=== PATIENT | female | born 1980 | race Caucasian/White ===

== ENCOUNTER 2018-01-26 18:49 | Emergency (ER) | payer BC ==
[2018-01-26 19:01] VITALS: BP 119/83
--- NOTE | 2018-01-26 20:28 | UC ---
FLU HPI - HPI Summary HPI Summary: patient is a 37-year-old female presenting to the with a chief complaint of excessive fatigue. She states the past 2 weeks she has been wanting to sleep all the time. She also endorses dry mouth. Denies any fevers, sweats, chills, URI symptoms, urinary symptoms, abdominal pain or headaches. Denies any recent illness. Denies any sick contacts. She has never felt this way before. She has no known diagnoses other than depression for which she takes Zoloft. She is here requesting a Lyme test. Denies any rashes, specifically EM rash and denies any recent tick bites. - History of Current Complaint Chief Complaint: UCGeneralIllness Stated Complaint: FATIGUE, AND ACHES Time Seen by Provider: 01/26/18 19:52 Hx Obtained From: Patient Hx Last Menstrual Period: 3 wks ago ?: No Onset/Duration: Sudden Onset Severity Currently: Mild Severity Initially: Mild Pain Intensity: 3 Pain Scale Used: 0-10 Numeric Associated Signs & Symptoms: Negative: Fever, T Max, F/C, Cough, Sore Throat, Nasal Congestion, Headache, Vomiting, Diarrhea - Risk Factors Influenza Risk Factors: Negative - Allergy/Home Medications Allergies/Adverse Reactions: Allergies Allergy/AdvReac Type Severity Reaction Status Date / Time No Known Allergies Allergy Verified 01/26/18 19:01 Home Medications: Home Medications Propranolol TAB* [Inderal TAB*] 1 tab PO ONCE 01/26/18 [History Confirmed ] Sertraline* [Zoloft*] 1 tab PO DAILY 01/26/18 [History Confirmed 01/26/18] PMH/Surg Hx/FS Hx/Imm Hx Previously Healthy: Yes - Surgical History Surgical History: None - Social History Occupation: Employed Full-time Lives: With Family Alcohol Use: Occasionally Substance Use Type: None Smoking Status (MU): Current Some Day Smoker Review of Systems Constitutional: Fatigue Skin: Negative Respiratory: Negative Cardiovascular: Negative Gastrointestinal: Negative Motor: Negative Neurovascular: Negative Musculoskeletal: Negative Neurological: Negative Is Patient Immunocompromised?: No All Other Systems Reviewed And Are Negative: Yes Physical Exam Triage Information Reviewed: Yes Appearance: Well-Appearing, Well-Nourished Vital Signs: Initial Vital Signs Temp 98.3 F 01/26/18 18:57 Pulse 68 01/26/18 18:57 Resp 18 01/26/18 18:57 BP 119/83 01/26/18 18:57 Pulse Ox 100 01/26/18 18:57 Vital Signs Reviewed: Yes Eye Exam: Normal Eyes: Positive: Conjunctiva Clear Neck exam: Normal Neck: Positive: Supple Respiratory Exam: Normal Respiratory: Positive: Chest non-tender Cardiovascular Exam: Normal Cardiovascular: Positive: RRR Musculoskeletal Exam: Normal Musculoskeletal: Positive: Strength Intact Neurological Exam: Normal Neurological: Positive: Alert Skin Exam: Normal Flu Course/Dx - Course Course Of Treatment: The patient is evaluated for excessive fatigue. TMs without erythema. Lungs CTA. RRR. No abdominal pain. No urinary symptoms. Patient looks otherwise well. She complains of excessive fatigue. She is requesting a Lyme test. Due to excessive fatigue, will add a Monospot as well as baseline labs. We'll call with any positive results. She is made aware and is okay with this plan and discharged at this time. - Differential Dx/Diagnosis Provider Diagnoses: Fatigue Discharge - Sign-Out/Discharge Documenting (check all that apply): Discharge/Admit/Transfer - Discharge Plan Condition: Stable Disposition: HOME Patient Education Materials: Lyme Disease (ED), Mononucleosis (ED) Referrals: No Primary Care Phys,NOPCP [Primary Care Provider] - Additional Instructions: Please follow up with PCP Will call with results - Billing Disposition and Condition Condition: STABLE Disposition: HOME
[2018-01-27 11:32] LABS: Hematocrit 39 % (35-47); Hemoglobin 13.3 g/dl (12.0-16.0); Mean Corpuscular HGB Conc 34 g/dl (31-36); Mean Corpuscular Hemoglobin 32 pg (27-31); Mean Corpuscular Volume 94 fL (80-97); Mean Platelet Volume 9.4 um3 (7.4-10.4); Platelet Count 253 10^3/ul (150-450); Red Blood Count 4.16 10^6/ul (4.0-5.4); Red Cell Distribution Width 13 % (10.5-15); White Blood Count 6.1 10^3/ul (3.5-10.8)
[2018-01-27 11:44] LABS: EGFR Non-African American 115.7 (>60)
== END 2018-01-26 20:20 | disposition home or self-care (01) ==
LOC: UCEAST 18:49
DX: R53.83 Other fatigue (principal); F32.9 Major depressive disorder, single episode, unspecified; F17.210 Nicotine dependence, cigarettes, uncomplicated
CPT/HCPCS: 36415; 80053; 85027; 86308; 87476; 87798; 99201; G0463